=== PATIENT | female | born 1980 | race Hispanic/Latino ===

== ENCOUNTER 2018-10-06 23:28 | Emergency (ER) | payer BC ==
[2018-10-07] MEDS ORDERED: DiphenhydrAMINE HCL 25 MG/10 ML ELIXIR UDCUP ONE (00:04)
[2018-10-07] MEDS ORDERED: ACETAMINOPHEN 325 MG TAB ONE (00:05)
== END 2018-10-07 00:58 | disposition home or self-care (01) ==
LOC: EDH 23:28
DX: T63.2X1A Toxic effect of venom of scorpion, accidental (unintentional), initial encounter (principal); S61.251A Open bite of left index finger without damage to nail, initial encounter; S61.250A Open bite of right index finger without damage to nail, initial encounter; Y92.89 Other specified places as the place of occurrence of the external cause

== ENCOUNTER 2019-02-23 05:19 | Emergency (ER) | payer BC ==
[2019-02-23] MEDS ORDERED: ONDANSETRON HCL 4 MG/2 ML VIAL ONE (05:45)
[2019-02-23] MEDS ORDERED: KETOROLAC TROMETHAMINE 30MG/ML ONE (05:45)
[2019-02-23] MEDS ORDERED: SODIUM CHLORIDE 0.9% 1000ML 1,000 ML IV ONE (05:45)
[2019-02-23 05:48] LABS: APPEARANCE,URINE Clear (CLEAR); BILIRUBIN,URINE Negative (NEGATIVE); COLOR,URINE Dark Yellow (YELLOW); GLUCOSE, URINE (UA) Negative (NEGATIVE); KETONES,URINE Negative (NEGATIVE); LEUKOCYTE ESTERASE ,URINE Small (NEGATIVE); NITRATE,URINE Negative (NEGATIVE); OCCULT BLOOD,URINE Large (NEGATIVE); PH,URINE 6.5 (5.0-8.0); PROTEIN,URINE Trace mg/dL (NEGATIVE)
[2019-02-23 05:54] LABS: HCG,QUAL RESULT NEGATIVE (NEGATIVE)
[2019-02-23 05:55] LABS: BASOPHILS % (AUTO) 0.2 % (0.0-5.0); EOSINOPHILS % (AUTO) 0.7 % (0.0-8.0); HEMATOCRIT 38.6 % (36-48); LYMPHOCYTES % (AUTO) 17.6 % (21.0-51.0); MEAN CORPUSCULAR HEMOGLOBIN 30.3 pg (27.0-33.0); MEAN CORPUSCULAR HGB CONC 33.7 g/dL (32.0-36.0); MEAN CORPUSCULAR VOLUME 89.9 fL (79-99); MONOCYTES % (AUTO) 6.7 % (3.0-13.0); NEUTROPHILS % (AUTO) 74.8 % (40.0-77.0); NUCLEATED RED BLOOD CELLS 0.1 % (0.0-0.19); PLATELET COUNT (AUTO) 185 K/uL (130-400); RED CELL DISTRIBUTION WIDTH 13.4 % (11.0-15.5)
[2019-02-23 05:57] LABS: BACTERIA,URINE Moderate /HPF (None Seen); MUCUS,URINE Few LPF (None Seen); RBC,URINE 51-100 /HPF (0-1); SQUAMOUS EPITHELIAL CELL,UR 0-2 /HPF (0-2)
[2019-02-23 06:05] LABS: POTASSIUM 4.1 mmol/L (3.5-5.1)
[2019-02-23 06:11] LABS: ALBUMIN 3.7 g/dL (3.5-5.0); BILIRUBIN,TOTAL 0.4 mg/dL (0.2-1.0); TOTAL PROTEIN, SERUM 7.4 g/dL (6.0-8.3)
[2019-02-23] MEDS ORDERED: FENTANYL CITRATE PF 50 MCG/1 ML 2ML VIAL ONE (06:54)
[2019-02-23] MEDS ORDERED: MORPHINE SULFATE 4 MG/1ML SYG ONE (07:39)
== END 2019-02-23 10:13 | disposition home or self-care (01) ==
LOC: EDH 05:19
DX: N20.1 Calculus of ureter (principal); Z87.442 Personal history of urinary calculi; Z98.51 Tubal ligation status; Z90.49 Acquired absence of other specified parts of digestive tract; Z98.890 Other specified postprocedural states
CPT/HCPCS: 36415; 74176; 76770; 80053; 81001; 81025; 85025; 87088; 96361; 96374; 96375; 99285; J1885; J2270; J2405; J3010; J7030